=== PATIENT | male | born 1980 | race Caucasian/White ===

== ENCOUNTER 2020-08-07 16:39 | Emergency (ER) | payer OTHER ==
[2020-08-07 17:46] LABS: BASOPHIL 0.4 % (0-2); EOSINOPHIL 0.7 % (0-5); HCT 43.4 % (42.0-52.0); HGB 14.7 g/dl (13.2-18.0); LYMPHOCYTE 18.2 % (15-48); MCH 29.9 pg (25.0-31.0); MCHC 33.9 g/dL (32.0-36.0); MCV 88.2 fL (78.0-100.0); MONOCYTE 6.8 % (0-12); MPV 8.9 fL (6.0-9.5); NEUTROPHIL 73.6 % (41-80); NRBC 0; PLT 252 K/uL (150-400); RBC 4.92 M/uL (4.70-6.00); RDW 12.2 % (11.5-14.0)
[2020-08-07] MEDS ORDERED: COLCRYS0.6 MG PO (19:05)
[2020-08-07] MEDS ORDERED: NORCO 5-325 TA1 EACH PO (19:05)
== END 2020-08-07 19:15 | disposition home or self-care (01) ==
LOC: FER 16:39
PROVIDERS: Emergency Medicine
DX: M10.022 Idiopathic gout, left elbow (principal); Z88.1 Allergy status to other antibiotic agents; Z88.6 Allergy status to analgesic agent
CPT/HCPCS: 36415; 73080; 84550; 85025

== ENCOUNTER → 2021-11-09 | Day surgery (SDC) | payer OTHER ==
[~2021-11-09] VITALS: Ht 175.3 cm; Wt 79.4 kg
[~2021-11-09] MED LIST: COLCRYS0.6 MG PO; NORCO 5-325 TA1 EACH PO; ONDANSETRON ODT8 MG PO; ZYRTEC10 MG PO
[2021-11-09 08:44] LABS: HCT 44.7 % (42.0-52.0); HGB 15.3 g/dl (13.2-18.0); MCH 30.3 pg (25.0-31.0); MCHC 34.2 g/dL (32.0-36.0); MCV 88.5 fL (78.0-100.0); MPV 8.7 fL (6.0-9.5); RBC 5.05 M/uL (4.70-6.00); RDW 13.1 % (11.5-14.0); WBC 4.5 K/uL (4.0-10.5)
[2021-11-09 09:23] LABS: ALBUMIN 3.9 g/dL (3.4-5.0); BILIRUBIN - TOTAL 0.6 mg/dL (0.2-1.0); BUN/CREAT RATIO (CALC) 10.5 RATIO; CREATININE 1.05 mg/dL (0.67-1.17); GLOBULIN (CALCULATION) 3.6 g/dL; POTASSIUM 4.3 mmol/L (3.5-5.1); TOTAL PROTEIN 7.5 g/dL (6.4-8.2)
== END | disposition home or self-care (01) ==
LOC: FAS 10-12 08:30
PROVIDERS: Surgery
DX: K42.0 Umbilical hernia with obstruction, without gangrene (principal); J45.909 Unspecified asthma, uncomplicated; Z88.1 Allergy status to other antibiotic agents; Z91.013 Allergy to seafood
CPT/HCPCS: 36415; 80053; J2250; J2704; J3010; J7120